=== PATIENT | male | born 2000 | race Caucasian/White ===

== ENCOUNTER 2021-06-10 01:06 | Emergency (ER) | payer MEDICAID, SELFPAY ==
[2021-06-10 01:13] VITALS: BP 140/80; PULSE 110; RESP 16; TEMP 37; O2SAT 99; BMI 32.5
--- NOTE | 2021-06-10 01:36 | PC.NURSE ---
PATIENT ADMITTING THAT HE USED MUSHROOMS TONIGHT AND HAS NOT BEEN TOLERATING WELL.
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
[2021-06-10 02:21] LABS: Amphetamine Screen Urine Not Detected (Not Detect); Barbiturates, Urine Not Detected (Not Detect); Benzodiazepines Screen Urine Not Detected (Not Detect); Cannabinoid Screen Urine POSITIVE (Not Detect); Cocaine Screen Urine Not Detected (Not Detect); Fentanyl, urine Not Detected (Not Detect); Opiate Screen Urine Not Detected (Not Detect); Phencyclidine Screen Urine Not Detected (Not Detect)
[2021-06-10 02:46] LABS: Ethanol 282 mg/dL
[2021-06-10 02:49] LABS: COVID-19 Test Negative (Negative)
[2021-06-10 06:00] VITALS: PULSE 84; RESP 16; O2SAT 97
--- NOTE | 2021-06-10 06:32 | PC.NURSE ---
PATIENT IS ALERT, ARGUING WITH STAFF REGARDING PLAN OF CARE. RAISING HIS VOICE ABOUT NOT HAVING A CLOCK, PATIENT STATING NO ONE IS TALKING TO ME. SITTER TALKING WITH PATIENT. THIS RN TALKING SEVERAL TIMES WITH PATIENT. PATIENT HAS BEEN SLEEPING AWAITING TALKING TO DETOX. PATIENT CALLING FAMILY MEMBER FOR A RIDE HOME. PROVIDER STATING THAT HE IS NOT SI/HI, PATIENT ONLY DISCLOSING THAT HE WANTED TO GET INTO DETOX VOLUNTARILY. PATIENT REPEATING HIMSELF OVER AND OVER AGAIN, STILL UNDER THE INFLUENCE. PATIENT WILL BE DISCHARGED IF FAMILY MEMBER ARRIVES FOR SOBER RIDE HOME ACCORDING TO PROVIDER
--- NOTE | 2021-06-10 06:33 | PC.NURSE ---
Patient became verbally aggressive towards the charge nurse regarding what the timeline was and how long he needs to stay here. The charge nurse explained this to the patient 5 times and he stated that he understood. He continued to harrass the charge nurse regarding what he was doing here. It was explained to the patient that he needed to sober up and that would not be at the legal limit until around 0900. He then asked why there were no clocks on the uribe and he wants to be somewhere that he can look at a clock.
[2021-06-10 08:27] VITALS: BP 165/83; PULSE 100; O2SAT 98
--- NOTE | 2021-06-10 08:59 | PC.NURSE ---
smart sheet sent to [facility]
== END 2021-06-10 12:15 | disposition home or self-care (01) ==
PROVIDERS: Emergency Provider Student in an Organized Health Care Education/Training Program; PCP Internal Medicine
DX: F33.1 Major depressive disorder, recurrent, moderate (principal); F10.129 Alcohol abuse with intoxication, unspecified; Y90.8 Blood alcohol level of 240 mg/100 ml or more; Z79.899 Other long term (current) drug therapy; Z20.822 Contact with and (suspected) exposure to COVID-19
CPT/HCPCS: 36415; 80307; 82077; 87635; 99285

== ENCOUNTER 2024-07-24 14:07 | Emergency (ER) | payer MEDICAID, SELFPAY ==
--- NOTE | ~2024-07-24 | CT_ITS ---
CLINICAL HISTORY: left flank pain CT abdomen and pelvis without contrast Comparison: None Findings: Limited evaluation without intravenous contrast. The lung bases are clear. Gallbladder within normal limits. No biliary ductal dilatation. Unenhanced liver, spleen, pancreas and adrenal glands are unremarkable. The kidneys are unremarkable with no renal or ureteral stones and no hydronephrosis or hydroureter. No bowel obstruction, pneumoperitoneum, or pneumatosis. Pelvic contents unremarkable. Normal appendix. Abdominal aorta is normal in size. The bones are intact. IMPRESSION: No acute findings. No renal or ureteral stones. This document has been electronically signed by: Isabela Orourke MD on 07/24/2024 17:14:28
--- NOTE | 2024-07-24 14:12 | ED_ITS ---
HPI - Back Pain/Injury General Chief Complaint: Back Pain/Injury Stated Complaint: back spasm Time Seen by Provider: 07/24/24 15:02 Source: patient Mode of arrival: ambulatory Limitations: no limitations History of Present Illness ED Provider: BETZY CHANG PA-C HPI Narrative: 24 year old male with no significant pmhx presents to the ED today for evaluation of left sided back pain x3 hours. Reports walking down the stairs when he felt a pain in his left back. Pain began radiating to his left hip. Pain is worse with movement. No radiation to abdomen. Admits to recent heavy lifting however nothing unusual. Denies blunt injury/ trauma/ falls. Reports history of muscle spasms within his back. He did not trial any OTC medications for his symptoms prior to arrival. Denies fever, chills, chest pain, SOB, cough, N/V, abdominal pain, urinary sx, testicular pain. Denies hx of IVDU. Denies hx spinal surgery. Denies saddle anesthesia, numbness/tingling/weakness of the lower extremities, bowel or bladder incontinence or retention. Related Data Previous Rx's ?Medication ?Instructions ?Recorded cyclobenzaprine 5 mg tablet 5 mg PO Q8H PRN muscle pain #7 tabs 07/24/24 lidocaine 5 % topical patch 1 patch topical DAILY #15 ea 07/24/24 (Lidoderm) Allergies Allergy/AdvReac Type Severity Reaction Status Date / Time shellfish derived Allergy Mild HEADACHES Verified 07/24/24 14:18 [SHELLFISH DERIVED] amoxicillin [AMOXICILLIN] Allergy Unknown RASH Verified 07/24/24 14:18 Review of Systems 2 Review of Systems: Constitutional: No fever, chills, fatigue, night sweats, weight changes ENT/Mouth: No ear pain, hearing loss, nasal congestion, sinus pain, rhinorrhea, sore throat Eyes: No eye pain, swelling, redness, vision changes, discharge Cardio: No chest pain, palpitations, MOHAN, orthopnea, peripheral edema Pulm: No SOB, cough, sputum, wheezing, dyspnea, hemoptysis GI: No nausea, vomiting, hematemesis, abdominal pain, diarrhea, constipation, hematochezia, melena : No irregular bleeding, dysuria, frequency, urgency, hesitancy, hematuria, flank pain, urinary flow changes, urinary incontinence or retention MSK: +back pain, No neck pain, joint pain, myalgias Skin: No lesions, rashes Neuro: No weakness, numbness, paresthesias, LOC, dizziness, headache All other systems reviewed and are negative. [facility] Past Medical History Attestation statement: The following information was validated with the patient. Source: old records reviewed and nursing notes reviewed Social History Social History Alcohol intake: current Patient Tobacco Use Status: Tobacco use Unknown Substance Use Type: Marijuana Advance Directives: No Advance Directives Information Provided: Yes Physical Exam 2 Vital Signs: Vital Signs: Last Vital Signs Temp 98.1 F 07/24/24 17:39 Pulse 83 07/24/24 17:39 Resp 18 07/24/24 17:39 BP 147/94 H 07/24/24 17:39 Pulse Ox 98 07/24/24 17:39 O2 Del Method Room Air 07/24/24 17:39 BMI result Body Mass Index 34.6 hypertensive, vitals otherwise nl General: Well appearing, in no acute distress. Skin: Warm, dry, intact. No rashes or lesions. Head: Normocephalic, atraumatic. EENT: Hearing is intact b/l. Conjunctiva clear. PERRLA. EOM intact. Moist mucous membranes.? Neck: Supple without LAD Cardiac: Chest wall symmetric. RRR Lungs: Normal respiratory effort without accessory muscle use. CTA bilaterally Abdomen: Soft, non-tender, non-distended. No rebound tenderness or guarding. Positive BS x4. no cvat. Back: reproducible tenderness to palpation of left thoracic and lumbar paraspinal musculature. no midline spinous tenderness or step off deformity. no palpable fluctuance or mass. no overlying skin changes/ rashes Ext: Upper and lower extremities atraumatic, without tenderness, deformity, swelling or erythema Neuro: AOx3. Normal speech. Strength 5/5 intact throughout. No saddle anesthesia. Sensation intact to light touch. NV intact distally. Ambulating with steady gait. Psych: Appropriate mood and affect. Responds appropriately to questions. Course Course Course Narrative: This is a Rapid Medical Exam performed in triage by Maria Isabel Perdomo PA-C. Full HPI, ROS and PE to be performed by primary ED provider. 24 yo M presenting to the ED c/o L lower back pain/flank pain, dizziness, general sickness/malaise x 3 hrs. Reports symptoms began while walking down stairs. Reports hip pain x 1 hr. Denies N/V, dysuria, hematuria, abd/back surgery (has had endoscopy), kidney stone, falls/trauma. Endorses heavy lifting, but nothing unusual. PE: + L lower/mid back MSK pain. Reproducible tenderness. No rash/erythema/eccyhmosis. Plan: labs, urine Reevaluation(s) Reevaluation #1: CBC with slight leukocytosis to 11.3 which appears to be around patient's baseline. No left shift. No anemia. H&H stable. Chemistry without acute electrolyte abnormality requiring intervention. No DANIEL. liver function at baseline. urine without infection. ct a/p unremarkable. no bowel obstruction. kidneys appear normal. no evidence of nephrolithiasis or obstructing ureteral stone. > patient declining any pain control in ED. it's reassuring that pain is reproducible. concern for MSK pain. will send flexeril/ lido patches to trial at home. Patient has remained stable throughout ED visit today. Discussed worrisome signs and symptoms and when to return to the ED. All questions answered at this time. Patient is agreeable with disposition and stable for discharge. Medical Decision Making Medical Decision Making [facility] Narrative: 24 year old male with no significant pmhx presents to the ED today for evaluation of left sided back pain x3 hours. patient is hypertensive, vitals are otherwise wnl. he is well appearing and in NAD. on exam, there is reproducible tenderness to palpation of left thoracic and lumbar paraspinal musculature. no midline spinous tenderness or step off deformity. no palpable fluctuance or mass. no overlying skin changes/ rashes. no cvat. abd soft, ND/NT without rebound or guarding. Concern for MSK sprain/strain, fracture, subluxation, disc herniation, sciatica. Considered UTI, renal colic, nephrolithiasis. Unlikely pyelonephritis. Unlikely ACS, PE (PERC 0). Unlikely cord compression, cauda equina, Guillain-[place], epidural abscess. Labs/ UA ordered from triage. Plan to review. Will add on CT a/p to further assess. Declining any pain control. Differential Diagnosis Differential Diagnoses: The differential diagnosis associated with the presentation includes as above Admission/Observation Not indicated. Lab Data [facility] Lab Attestation statement: I reviewed the patient's lab results. as above. 07/24/24 14:29 07/24/24 14:29 Labs: Lab Results 07/24/24 Range/Units 14:29 WBC 11.3 H (4.8-10.8) X10*3/uL RBC 5.38 (4.60-5.80) X10*6/uL Hgb 16.8 (14.0-18.0) g/dl Hct 47.3 (42.0-52.0) % MCV 87.9 (80.0-98.0) fL MCH 31.2 (27.0-33.0) pg MCHC 35.5 (31.0-36.0) g/dl RDW 11.5 (11.0-16.0) % Plt Count 303 (160-400) X10*3/uL MPV 8.6 L (9.4-12.4) fL Immature Gran % (Auto) 0.5 H (0.0-0.4) % Neut % (Auto) 59.1 (45-73) % Lymph % (Auto) 28.7 (20-40) % [place] % (Auto) 8.6 (2-11) % Eos % (Auto) 2.7 (0-4) % Baso % (Auto) 0.4 (0-2) % Lymph # (Auto) 3.2 (1.2-4.9) X10*3/uL [place] # (Auto) 1.0 (0.1-1.2) X10*3/uL Eos # (Auto) 0.3 (0.0-0.4) X10*3/uL Baso # (Auto) 0.1 (0.0-0.2) X10*3/uL Abs Immat Gran (auto) 0.06 H (0.00-0.03) X10*3/uL Absolute Neuts (auto) 6.7 (2.0-8.3) x10*3/uL Absolute Nucleated RBC 0.000 (0.0-0.012) X10*3/uL Nucleated RBC % (auto) 0.0 (0.0-0.2) /100WBC Sodium 142 (135-145) mmol/L Potassium 3.8 (3.3-5.1) mmol/L Chloride 110 H (96-108) mmol/L Carbon Dioxide 23 (22-29) mmol/L Anion Gap 13 (12-20) BUN 12 (9-16) mg/dL Creatinine 0.92 (0.5-1.4) mg/dL Estim Creat Clear Calc 169.1 Estimated GFR > 60 Random Glucose 108 (60-115) mg/dL Calcium 9.7 (8.4-10.2) mg/dL Magnesium 2.1 (1.6-2.6) mg/dL Total Bilirubin 0.5 (0.0-1.0) mg/dL Direct Bilirubin 0.2 (0.0-0.5) mg/dL AST 31 (5-37) U/L ALT 44 H (0-40) U/L Alkaline Phosphatase 69 (39-117) U/L Total Protein 7.4 (6.5-8.0) g/dL Albumin 4.9 (3.5-5.0) g/dL Lipase 15 (8-78) U/L Urine Color Yellow Urine Appearance Clear Urine pH 6.0 (5.0-9.0) Ur Specific [place] 1.025 (1.005-1.025) Urine Protein Negative (Neg-Trace) mg/dL Urine Glucose (UA) Negative (Negative) mg/dL Urine Ketones Trace (Negative) mg/dL Urine Blood Negative (Negative) Urine Nitrite Negative (Negative) Ur Leukocyte Esterase Negative (Negative) Independent Interpretation I performed an independent interpretation of an: CT Scan Interpretation: ct at/p without renal stone or hydronephrosis. no noted vertebral fracture Radiology Impression Discussion of test interpretation with radiology: I have reviewed the radiologist's reading. Radiologist Impression: Procedure(s): CT abdomen pelvis wo IV con Accession Number(s): [id number] cc: Physician,None ; Betzy Chang~ Report Number: [id number]: Total DLP = 865.00 mGy-cm CLINICAL HISTORY: left flank pain CT abdomen and pelvis without contrast Comparison: None Findings: Limited evaluation without intravenous contrast. The lung bases are clear. Gallbladder within normal limits. No biliary ductal dilatation. Unenhanced liver, spleen, pancreas and adrenal glands are unremarkable. The kidneys are unremarkable with no renal or ureteral stones and no hydronephrosis or hydroureter. No bowel obstruction, pneumoperitoneum, or pneumatosis. Pelvic contents unremarkable. Normal appendix. Abdominal aorta is normal in size. The bones are intact. IMPRESSION: No acute findings. No renal or ureteral stones. This document has been electronically signed by: Isabela Orourke MD on 07/24/2024 17:14:28 External Record Review External record reviewed: Inpatient record Prescription Management I considered prescription management with: Pain Medication and Other (flexeril) Social Determinants Patient?s care significantly limited by Social Determinants of Health including: Other Social Determinant of Health Critical Care Time Critical Care Time Critical Care Time: No Discharge Plan Discharge Clinical Impression: Acute thoracic back pain Patient Disposition: Home, Self-Care Instructions: Thoracic Pain (ED) Additional Instructions: Your evaluation did not show signs of medical conditions requiring emergent intervention at this time. Avoid bending, lifting, or twisting. Use ice several times per day for 20 minutes at a time for the next 48 hours and then change to heat. I recommend you take 600mg ibuprofen every 6 hours or tylenol 650mg every 6 hours as needed for pain. If needed, you can alternate these medications so that you take one medication every 3 hours. For example, at noon take ibuprofen, then at 3pm take tylenol, then at 6pm take ibuprofen. Flexeril is a muscle relaxer. Take this at night as it makes you drowsy. Do not drive, drink alcohol, or operate machinery while taking it. Lidoderm patches are numbing patches. Apply to painful areas. Please schedule an appointment for follow-up with your primary care provider this week for further evaluation of your symptoms. Return to the Emergency Department if you experience worsening back pain, difficulty walking, fevers, numbness, tingling, incontinence, or any other concerning symptoms. In the case of an emergency call 911. Prescriptions: New cyclobenzaprine 5 mg tablet 5 mg PO Q8H PRN (Reason: muscle pain) Qty: 7 0RF lidocaine [Lidoderm] 5 % adhesive patch,medicated 1 patch topical DAILY Qty: 15 0RF Rx Instructions: leave on most painful area for up to 12 hrs Referrals: Physician,None [Primary Care Provider] - Stand Alone Forms: Work/School Release Interventions: ED Discharge Assessment Last Done: 07/24/24 17:39 Discharge Date/Time: 07/24/24 17:40 Print Language: Indonesian
[2024-07-24 14:15] VITALS: BP 147/94; PULSE 83; RESP 18; TEMP 36.7; O2SAT 98; BMI 34.6
[2024-07-24 14:36] LABS: MANUAL DIFF FLAG NO
[2024-07-24 14:39] LABS: Appearance Urine Clear; Color Urine Yellow; Glucose Urine UA Negative (Negative); Leukocyte Esterase Urine Negative (Negative); Nitrite Urine Negative (Negative); Specific Gravity - Urine 1.025 (1.005-1.025); Urine Blood Negative (Negative); Urine Ketones Trace mg/dL (Negative); Urine Protein Negative (Neg-Trace)
[2024-07-24 14:40] LABS: Basophils Absolute Auto 0.1 X10*3/uL (0.0-0.2); Basophils Percent Auto 0.4 % (0-2); Eosinophils Absolute Auto 0.3 X10*3/uL (0.0-0.4); Eosinophils Percent Auto 2.7 % (0-4); Hematocrit 47.3 % (42.0-52.0); Hemoglobin 16.8 g/dl (14.0-18.0); Imm Gran Abs Auto 0.06 X10*3/uL (0.00-0.03); Imm Gran Pct Auto 0.5 % (0.0-0.4); Lymphocytes Absolute Auto 3.2 X10*3/uL (1.2-4.9); Lymphocytes Percent Auto 28.7 % (20-40); Mean Corpuscular HGB Conc 35.5 g/dl (31.0-36.0); Mean Corpuscular Hemoglobin 31.2 pg (27.0-33.0); Mean Corpuscular Volume 87.9 fL (80.0-98.0); Mean Platelet Volume 8.6 fL (9.4-12.4); Monocytes Percent Auto 8.6 % (2-11); Neutrophils Absolute Auto 6.7 x10*3/uL (2.0-8.3); Neutrophils Percent Auto 59.1 % (45-73); Platelet Count 303 X10*3/uL (160-400); Red Blood Count 5.38 X10*6/uL (4.60-5.80); Red Cell Distribution Width 11.5 % (11.0-16.0); White Blood Count 11.3 X10*3/uL (4.8-10.8)
--- OUTSIDE RECORDS SUMMARY | 2024-07-24 14:43 | XMS_ITS | Encounter Summary ---
Author Organization [facility] Address [address] [place] [id number] Phone Care Team Providers Care Tentering Machine Off Bearer Name Role Phone Anthony Murrell MD Primary Care Provider [phone] Encounter Details Date Type Department Care Team (Late st Contact Info) Description 11/27/2016 Conversion Encounter [facility] - [address], [address] [place] [address] Anthony Murrell MD [address] [place] [address] Social History Tobacco Use Types Packs/Day Years Used Date Smoking Tobacco: Never Assessed Sex and Gender Information Value Date Recorded Sex Assigned at Not on file Legal Sex Male 3:43 PM EST Gender Identity Not on file Sexual Orientation Not on file documented as of this encounter Plan of Treatment Not on file documented as of this encounter Visit Diagnoses Not on filedocumented in this encounter Care Teams Tentering Machine Off Bearer Relationship Specialty Start Date End Date Anthony Murrell MD [address] [place] [address] PCP - General 06/11/16 04/20/20 documented as of this encounter
--- OUTSIDE RECORDS SUMMARY | 2024-07-24 14:43 | XMS_ITS | Clinical Summary ---
Author Organization [facility] Address [address] [place] [phone] Phone Care Team Providers Care Clerk Typist Name Role Phone Unavailable Primary Care Provider Unavailabl e Immunizations Immunization Administration Dates Next Due DTaP 05/31/2002, 0,1998, 999,1998 H1N1 03/22/2009 HPV, Quadrivalent 11/09/2012,01/22/2012,11/19/19 12 Hep B, ped/adol 03/06/1999,1998,1998 Hib (PRP-T) 09/03/1999, 9,1998, 999 IPV 05/31/2002, 0,1998, 999 Influenza 12/21/2008, 8,03/06/2007, 006,03/18/2005,03/30/2004,02/18/2004 Influenza, injectable, trivalent 01/22/2012,03/22,02/21/2010 Influenza, intranasal, quadrivalent 03/02/2013 MMR 06/09/2003,09/03/1999 Meningococcal Conj (Menactra) MCV4P 08/22/2010 Pneumococcal Conjugate 06/19/2000,12/13/1999 Tdap 08/22/2010 Varicella 06/01/2007,06/19/1999 Family History Relation Name Status Comments Father Alive Mother Alive Other 1 Alive Other 2 Alive Social History Tobacco Use Types Packs/Day Years Used Date Smoking Tobacco: Never Assessed Sex and Gender Information Value Date Recorded Sex Assigned at Not on file Legal Sex Male 3:43 PM EST Gender Identity Not on file Sexual Orientation Not on file Last Filed Vital Signs Vital Sign Reading Time Taken Comments Blood Pressure 138/70 12/06/2015 12:00 AM EDT Pulse 72 12/06/2015 12:00 AM EDT Temperature 37.3 ??C (99.1 ??F) 08/15/2015 12:00 AM E DT Respiratory Rate - - Oxygen Saturation 97% 02/15/2015 12:00 AM EDT Inhaled Oxygen Concentration - - Weight 115 kg (252 lb 12.8 oz) 12/06/2015 12:00 AM EDT Height 186.7 cm (6' 1.5 ) 12/06/2015 12:00 AM ED T Body Mass Index 32.9 12/06/2015 12:00 AM EDT Plan of Treatment Health Maintenance Due Date Last Done Comments DTaP,Tdap,and Td Vaccines (7 - Td or Tdap) 08/22/2020 08/22/2010, 05/31/2002, 12/13/1999, Additional history exists Influenza Vaccines (#1) 2023 03/02/20 13, 01/22/2012, 04/18/2011, Additional history exists COVID-19 Vaccine ( season) 2023 Hepatitis B Vaccines Completed 03/06/1999, 1998, 1998 HIB Vaccines Completed 09/03/1999, 11/19, 1998, Additional history exists Pneumococcal Vaccine Completed 06/19/2000, 12/13/19 IPV Vaccines Completed 05/31/2002, 05/23, 1998, Additional history exists MMR Vaccines Completed 06/09/2003, 09/03/1999 Varicella Vaccines Completed 06/01/2007, 06/19/1999 Meningococcal Vaccine Aged Out 08/22/2010 No yadi nghia eligible based on patient's age to complete this topic HPV Vaccines Completed 11/09/2012, 06/2011, 11/19/2011 Hepatitis A Vaccines Aged Out No long er eligible based on patient's age to complete this topic Men B Vaccine Aged Out No longer elig ible based on patient's age to complete this topic
[2024-07-24 14:54] LABS: Alanine Aminotransferase 44 U/L (0-40); Albumin Level 4.9 g/dL (3.5-5.0); Alkaline Phosphatase 69 U/L (39-117); Anion Gap 13 (12-20); Aspartate Amino Transferase 31 U/L (5-37); Bilirubin Direct 0.2 mg/dL (0.0-0.5); Bilirubin Total 0.5 mg/dL (0.0-1.0); Blood Urea Nitrogen 12 mg/dL (9-16); Calcium 9.7 mg/dL (8.4-10.2); Carbon Dioxide 23 mmol/L (22-29); Chloride 110 mmol/L (96-108); Creatinine Clr Calc Pharmacy 169.1; Estimated Glomerular Filt Rate > 60; Glucose Random 108 mg/dL (60-115); Lipase 15 U/L (8-78); Magnesium 2.1 mg/dL (1.6-2.6); Potassium 3.8 mmol/L (3.3-5.1); Sodium 142 mmol/L (135-145); Total Protein 7.4 g/dL (6.5-8.0)
[2024-07-24 17:39] VITALS: BP 147/94; PULSE 83; RESP 18; TEMP 36.7; O2SAT 98
== END 2024-07-24 17:40 | disposition home or self-care (01) ==
PROVIDERS: Physician Assistant; Emergency Provider Emergency Medicine Emergency Medical Services
DX: M54.6 Pain in thoracic spine (principal)
CPT/HCPCS: 36415; 74176; 80048; 80076; 81003; 83690; 83735; 85025; 99282; 99284

== ENCOUNTER → 2024-07-24 15:33 | Outpatient (BNV) | payer MEDICAID, SELFPAY | PROVIDERS: Emergency Provider Emergency Medicine Emergency Medical Services; Visit Provider Specialist | DX: R10.9 Unspecified abdominal pain (principal) | CPT/HCPCS: 74176 ==